=== PATIENT | female | born 1970 | race Caucasian/White ===

== ENCOUNTER → 2023-05-19 | Emergency (ER) | payer OTHER ==
--- NOTE | 2023-05-19 16:44 | RAD REPORT ---
EXAM DESCRIPTION: CT - C Spine Wo Con - 05/19/2023 4:38 pm CLINICAL HISTORY: fall injury COMPARISON: No comparisons FINDINGS: The cervical vertebral body heights and disc spaces are maintained. No evidence of acute cervical spine fracture or subluxation. Prevertebral soft tissues are normal in thickness. IMPRESSION: Negative for acute cervical spine abnormality. All CT scans are performed using dose optimization technique as appropriate and may include automated exposure control or mA/KV adjustment according to patient size.
--- NOTE | 2023-05-19 17:08 | ER ---
Nurse's Notes [facility] Name: Mary Anne Ignacio Age: 53 yrs Sex: Female : 1970 Arrival Date: 05/19/2023 Time: 15:30 Bed 11 Private MD: Diagnosis: Contusion of unspecified part of neck, initial encounter Presentation: 05/18 15:43 Chief complaint: Patient states: Fell this morning - c/o pain to neck and left heel. ld1 Denies LOC. Coronavirus screen: At this time, the client does not indicate any symptoms associated with coronavirus-19. Ebola Screen: No symptoms or risks identified at this time. Initial Sepsis Screen: Does the patient meet any 2 criteria? No. Patient's initial sepsis screen is negative. Does the patient have a suspected source of infection? No. Patient's initial sepsis screen is negative. Risk Assessment: Do you want to hurt yourself or someone else? Patient reports no desire to harm self or others. Onset of symptoms was May 19, 2023. 15:43 Method Of Arrival: Ambulatory ld1 15:43 Acuity: DENNIS 3 ld1 Triage Assessment: 15:44 General: Appears in no apparent distress. uncomfortable, Behavior is calm, cooperative, ld1 appropriate for age. Pain: Complains of pain in face and scalp Pain does not radiate. Pain currently is 7 out of 10 on a pain scale. Quality of pain is described as throbbing. EENT: No signs and/or symptoms were reported regarding the EENT system. Neuro: Level of Consciousness is awake, alert, obeys commands, Oriented to person, place, time, situation. Cardiovascular: Capillary refill < 3 seconds Patient's skin is warm and dry. Respiratory: Airway is patent Respiratory effort is even, unlabored. GI: Abdomen is round non-distended. 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 - Social history:: Smoking status: Patient denies any tobacco usage or history of. Patient/guardian denies using alcohol. - Family history:: not pertinent. - Hospitalizations: : No recent hospitalization is reported. Screenin:46 [facility] ED Fall Risk Assessment (Adult) History of falling in the last 3 months, mb9 including since admission Yes- single mechanical fall (1 pt) Confusion or Disorientation No (0 pts) Intoxicated or Sedated No (0 pts) Impaired Gait No (0 pts) Mobility Assist Device Used No (0 pt) Altered Elimination No (0 pt) Score/Fall Risk Level 3 or more points = High Risk Oriented to surroundings, Maintained a safe environment, Educated pt \T\ family on fall prevention, incl call for assistance when getting out of bed. Abuse screen: Denies threats or abuse. Nutritional screening: No deficits noted. Tuberculosis screening: No symptoms or risk factors identified. Assessment: 16:02 General: Appears in no apparent distress. Behavior is calm, cooperative. Pain: mb9 Complains of pain in neck Pain does not radiate. Quality of pain is described as throbbing, Pain began suddenly. Neuro: Ibanez Agitation-Sedation Scale (RASS): 0 - Alert and Calm Level of Consciousness is awake, alert, obeys commands, Oriented to person, place, time, situation, Appropriate for age. Neuro: Pupils are PERRLA. Cardiovascular: Patient's skin is warm and dry. Respiratory: Airway is patent Respiratory effort is even, unlabored, Respiratory pattern is regular, symmetrical. GI: No signs and/or symptoms were reported involving the gastrointestinal system. : No signs and/or symptoms were reported regarding the genitourinary system. EENT: No signs and/or symptoms were reported regarding the EENT system. Derm: Skin is pink, warm \T\ dry. Musculoskeletal: Range of motion: intact in all extremities. 17:10 Reassessment: No changes from previously documented assessment. Patient and/or family mb9 updated on plan of care and expected duration. Pain level reassessed. Patient is alert, oriented x 3, equal unlabored respirations, skin warm/dry/pink. Vital Signs: 15:43 BP 163 / 69; Pulse 80; Resp 18; Temp 98.1(TE); Pulse Ox 98% on R/A; Weight 88.45 kg; ld1 Height 5 ft. 3 in. ; Pain 7/10; 17:03 BP 109 / 84; Pulse 86; Resp 18; Pulse Ox 100% on R/A; mb9 15:43 Body Mass Index 34.54 (88.45 kg, 160.02 cm) ld1 15:43 Pain Scale: Adult ld1 ED Course: 15:34 Patient arrived in ED. ae5 15:40 Surekha Doty, RN is Primary Nurse. mb9 15:40 Arm band placed on. mb9 15:43 Hector Joy MD is Attending Physician. rn 15:44 Triage completed. ld1 15:45 Placed in gown. Bed in low position. Call light in reach. Side rails up X 1. Client mb9 placed on continuous cardiac and pulse oximetry monitoring. NIBP monitoring applied. 15:46 Provided Education on: press call light. mb9 16:[address] via stretcher. mb9 17:10 No provider procedures requiring assistance completed. Patient did not have IV access mb9 during this emergency room visit. Administered Medications: No medications were administered Medication: 15:46 VIS not applicable for this client. mb9 Outcome: 17:08 Discharge ordered by . rn 17:10 Discharged to home ambulatory, with family, mb9 17:10 Condition: stable 17:10 Discharge instructions given to patient, Instructed on discharge instructions, follow up and referral plans. Demonstrated understanding of instructions, follow-up care, 17:14 Patient left the ED. mb9 Signatures: Hector Joy MD MD rn Sims, Lauren, RN RN ld1 Surekha Doty, RN RN mb9 Shavon Holly ae5 Corrections: (The following items were deleted from the chart) 15:45 15:44 Allergies: No Known Allergies; ld1 ld1 15:45 15:44 PSHx: Vasectomy; ld1 ld1 17:03 17:03 BP 109 / 95; Pulse 86bpm; Resp 18bpm; Pulse Ox 100% RA; mb9 mb9
--- NOTE | 2023-05-19 17:08 | EDPHYS ---
Physician Documentation [facility] Name: Mary Anne Ignacio Age: 53 yrs Sex: Female : 1970 Arrival Date: 05/19/2023 Time: 15:30 Bed 11 Private MD: ED Physician Hector Joy HPI: 05/18 16:27 This 53 yrs old Female presents to ER via Ambulatory with complaints of Fall Injury, rn Neck Pain, >24Hrs Old. 16:27 Details of fall: The patient fell from an upright position, while walking. Onset: The rn symptoms/episode began/occurred this morning. Associated injuries: The patient sustained neck injury. 16:27 Severity of symptoms: At their worst the symptoms were mild, in the emergency rn department the symptoms are unchanged. The patient has not experienced similar symptoms in the past. Patient reports walking at home, had tripped on something, struck her neck on small plastic or wooden box on the floor. Patient reports pain to neck on both sides. No weakness or numbness. No focal neurological deficit. Denies head injury. Denies injury to extremities. No chest injury. No abdominal pain or back pain. Remembers all events. Has been ambulatory since fall but has increased stiffness and pain.. 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 - Social history:: Smoking status: Patient denies any tobacco usage or history of. Patient/guardian denies using alcohol. - Family history:: not pertinent. - Hospitalizations: : No recent hospitalization is reported. ROS: 16:27 Constitutional: Negative for fever, chills, and weight loss, Eyes: Negative for injury, rn pain, redness, and discharge, Neck: Positive for neck pain and injury Cardiovascular: Negative for chest pain, palpitations, and edema, Respiratory: Negative for shortness of breath, cough, wheezing, and pleuritic chest pain, Abdomen/GI: Negative for abdominal pain, nausea, vomiting, diarrhea, and constipation, Back: Negative for injury and pain, MS/Extremity: Negative for injury and deformity, Skin: Negative for injury, rash, and discoloration, Neuro: Negative for headache, weakness, numbness, tingling, and seizure, Exam: 16:27 Constitutional: This is a well developed, well nourished patient who is awake, alert, rn and in no acute distress. Sitting upright with travel pillow around neck. Head/Face: Normocephalic, atraumatic. Neck: No focal tenderness. No midline tenderness. No swelling or crepitus. No ecchymosis or contusion. No asymmetric swelling. Cardiovascular: Regular rate and rhythm. No pulse deficits. Respiratory: No increased work of breathing, no retractions or nasal flaring. MS/ Extremity: Pulses equal, no cyanosis. Neurovascular intact. Full, normal range of motion. Equal circumference. Neuro: Awake and alert, GCS 15, oriented to person, place, time, and situation. Cranial nerves II-XII grossly intact. Motor strength 5/5 in all extremities. Sensory grossly intact. Cerebellar exam normal. Vital Signs: 15:43 BP 163 / 69; Pulse 80; Resp 18; Temp 98.1(TE); Pulse Ox 98% on R/A; Weight 88.45 kg; ld1 Height 5 ft. 3 in. ; Pain 7/10; 17:03 BP 109 / 84; Pulse 86; Resp 18; Pulse Ox 100% on R/A; mb9 15:43 Body Mass Index 34.54 (88.45 kg, 160.02 cm) ld1 15:43 Pain Scale: Adult ld1 MDM: 15:43 Patient medically screened. rn 17:07 Differential diagnosis: contusion, fracture, sprain, strain. Data reviewed: vital rn signs, nurses notes, radiologic studies, CT scan, and as a result, I will discharge patient. Counseling: I had a detailed discussion with the patient and/or guardian regarding the historical points, exam findings, and any diagnostic results supporting the discharge/admit diagnosis, radiology results, the need for outpatient follow up, to return to the emergency department if symptoms worsen or persist or if there are any questions or concerns that arise at home. Special discussion: I discussed with the patient/guardian in detail that at this point there is no indication for admission to the hospital. It is understood, however, that if the symptoms persist or worsen the patient needs to return immediately for re-evaluation. ED course: CT C-spine negative for acute fracture or injury.. 05/18 15:51 Order name: CT C Spine rn 05/18 16:44 Order name: CT; Complete Time: 17:04 EDMS Administered Medications: No medications were administered Disposition Summary: 05/19/23 17:08 Discharge Ordered Notes: Location: Home rn Problem: new rn Symptoms: have improved rn Condition: Stable rn Diagnosis - Contusion of unspecified part of neck, initial encounter rn Followup: rn - With: Private Physician - When: As needed - Reason: Recheck today's complaints, Re-evaluation by your physician Discharge Instructions: - Discharge Summary Sheet rn - Neck Contusion rn Forms: - Medication Reconciliation Form rn - Thank You Letter rn - Antibiotic buying intern - Prescription Opioid Use rn - Patient Portal Instructions rn - Leadership Thank You Letter rn Signatures: Dispatcher [employer] EDMS Hector Joy MD MD rn Sims, Lauren, RN RN ld1 Corrections: (The following items were deleted from the chart) 15:45 15:44 Allergies: No Known Allergies; ld1 ld1 15:45 15:44 PSHx: Vasectomy; ld1 ld1 16:29 16:27 Details of fall: The patient fell from an upright position, while walking, rn rn 16:29 16:27 Onset: The symptoms/episode began/occurred yesterday, rn rn
[2023-05-19 17:39] VITALS: BP 109/84; TEMP 98.1; O2SAT 100
== END ==
LOC: ER 15:30
DX: S10.83XA Contusion of other specified part of neck, initial encounter (principal); E11.9 Type 2 diabetes mellitus without complications; Z95.0 Presence of cardiac pacemaker; Z95.818 Presence of other cardiac implants and grafts; Z88.0 Allergy status to penicillin; Z88.1 Allergy status to other antibiotic agents; Z88.6 Allergy status to analgesic agent
CPT/HCPCS: 72125; 99284